=== PATIENT | male | born 1995 | race Caucasian/White ===

== ENCOUNTER 2021-10-20 08:24 | Emergency (ER) | payer OTHER ==
[~2021-10-20] VITALS: Ht 172.7 cm; Wt 69.8 kg
[2021-10-20] MEDS ORDERED: ondansetron 4mg rapidly disintigrating tab PO ONE (09:15)
[2021-10-20 09:32] LABS: BASOPHILS % (AUTO) 0.3 % (0-1); EOSINOPHILS % (AUTO) 0.4 % (0-6); HEMATOCRIT 48.7 % (42.0-52.0); LYMPHOCYTES # (AUTO) 1.2 X10'3 (1.1-4.8); LYMPHOCYTES % (AUTO) 13.6 % (21-51); MEAN CORPUSCULAR HEMOGLOBIN 29.8 PG (27.0-31.0); MEAN CORPUSCULAR HGB CONC 34.9 g/dL (33.0-36.5); MEAN CORPUSCULAR VOLUME 85.3 FL (78-98); MEAN PLATELET VOLUME 7.9 FL (7.4-10.4); MONOCYTES # (AUTO) 0.8 X10'3 (0-0.9); NEUTROPHILS # (AUTO) 6.5 X10'3 (1.8-7.7); NEUTROPHILS % (AUTO) 76.7 % (42-75); PLATELET COUNT 309 X10'3 (140-440); RED CELL DISTRIBUTION WIDTH 12.7 % (11.5-14.5); WHITE BLOOD COUNT 8.5 X10'3 (4.5-11.0)
[2021-10-20 09:46] LABS: ALANINE AMINOTRANSFERASE 57 U/L (12-78); ALBUMIN 4.7 G/DL (3.4-5.0); ALBUMIN/GLOBULIN RATIO 1.2 (1.1-1.5); ALKALINE PHOSPHATASE 87 IU/L (46-116); ANION GAP 19 (8-16); ASPARTATE AMINO TRANSFERASE 33 U/L (10-37); BILIRUBIN,TOTAL 1.4 MG/DL (0.1-1.0); BLOOD UREA NITROGEN 13 MG/DL (7-18); BUN/CREATININE RATIO 12.6 (5.4-32.0); CALCIUM 9.4 MG/DL (8.5-10.1); CHLORIDE 96 MMOL/L (99-107); CREATININE 1.03 MG/DL (0.60-1.10); GLUCOSE 118 MG/DL (70-104); LIPASE < 50 U/L (73-393); POTASSIUM 3.7 MMOL/L (3.5-5.1); SODIUM 137 MMOL/L (135-145); TOTAL CARBON DIOXIDE 22.1 MMOL/L (24-32); TOTAL PROTEIN 8.6 G/DL (6.4-8.2); eGFR 89 ML/MIN
[2021-10-20] MEDS ORDERED: metoclopramide 5 mg/ml inj IV ONE ×2 (10:35→14:15)
[2021-10-20] MEDS ORDERED: ringers solution, lacted 1,000 ML IV ONE ×2 (10:35→13:30)
[2021-10-20 12:38] LABS: CLARITY,URINE SLIGHTLY CLOUDY (Clear); COLOR,URINE YELLOW (Yellow); GLUCOSE, URINE NEGATIVE (Neg); KETONES,URINE >=80 mg/dl (Neg); LEUKOCYTE ESTERASE ,URINE NEGATIVE (Neg); NITRITES, URINE NEGATIVE (Neg); OCCULT BLOOD,URINE TRACE-INTACT (Neg); PROTEIN,URINE 30 mg/dl (Neg); UROBILINOGEN,URINE 0.2 E.U/dL (0.2-1.0)
[2021-10-20 12:42] LABS: UA COLLECTION TYPE VOIDED
[2021-10-20 12:44] LABS: BACTERIA,URINE 1+ /HPF (Neg); MUCUS STRANDS FEW /LPF (Neg); RBC,URINE 0-2 /HPF (0-2); SQUAMOUS EPITHELIAL CELL,UR FEW /LPF (FEW); WBC,URINE 0-4 /HPF (0-4)
[2021-10-20] MEDS ORDERED: famotidine/PF 10 mg/ml inj IV ONE (12:50)
[2021-10-20] MEDS ORDERED: FAMO-128 PO ×2 (13:32→17:33)
[2021-10-20] MEDS ORDERED: diphenhydrAMINE 50 mg/ml inj IV ONE (14:25)
[2021-10-20] MEDS ORDERED: morphine 4 MG/ML inj SYRINge IV ONE (14:45)
[2021-10-20] MEDS ORDERED: normal saline 1000ML IV soln IVB ONE (16:30)
[2021-10-20 16:57] VITALS: BP 107/59
[2021-10-20] MEDS ORDERED: ONDA4TAB12 PO (17:33)
[2021-10-20] MEDS ORDERED: SUCR1TAB34 PO (17:33)
[2021-10-20] MEDS ORDERED: HYDR-3965 PO (17:33)
== END 2021-10-20 18:16 | disposition home or self-care (01) ==
LOC: ER 08:24
DX: K29.20 Alcoholic gastritis without bleeding (principal)
CPT/HCPCS: 36415; 74176; 80053; 81001; 83690; 85025; 96361; 96374; 96375; 99284; J2270; J2765; J3490; J7030; J7120